=== PATIENT | female | born 1985 | race Caucasian/White ===

== ENCOUNTER 2025-06-23 23:36 | Emergency (ER) | payer OTHER ==
[~2025-06-23] VITALS: Ht 172.7 cm; Wt 95.7 kg
[2025-06-24] MEDS ORDERED: TDAP [DIPH/PERTUSSIS/TET] 0.5 ML VIAL IM ONE (00:12)
[2025-06-24] MEDS: TDAP [DIPH/PERTUSSIS/TET] 0.5 ML VIAL IM ONE (00:13)
[2025-06-24] MEDS ORDERED: LET SOLN TOPICAL 8 ML UDC TP ONE (00:28)
[2025-06-24 00:51] VITALS: BP 122/77; TEMP 98.1; O2SAT 99
== END 2025-06-24 00:51 | disposition home or self-care (01) ==
LOC: ER 23:40
DX: S01.01XA Laceration without foreign body of scalp, initial encounter (principal); W22.8XXA Striking against or struck by other objects, initial encounter; Y93.89 Activity, other specified; Y92.89 Other specified places as the place of occurrence of the external cause; Y99.9 Unspecified external cause status
CPT/HCPCS: 90715

== ENCOUNTER 2025-07-01 13:00 | Emergency (ER) | payer OTHER ==
[~2025-07-01] VITALS: Ht 172.7 cm; Wt 95.7 kg
[2025-07-01 13:13] VITALS: BP 120/74; TEMP 98.1
[2025-07-01 14:02] VITALS: O2SAT 98
== END 2025-07-01 14:00 | disposition home or self-care (01) ==
LOC: ER 13:05
DX: S01.91XD Laceration without foreign body of unspecified part of head, subsequent encounter (principal); Z48.02 Encounter for removal of sutures; W22.8XXD Striking against or struck by other objects, subsequent encounter